=== PATIENT | female | born 1970 | race Caucasian/White ===

== ENCOUNTER 2018-12-25 22:22 | Emergency (ER) | payer BC ==
[~2018-12-25] VITALS: Ht 170.2 cm; Wt 113.4 kg
[2018-12-25] MEDS ORDERED: SYNTHROID175 MCG (22:27)
== END 2018-12-26 00:26 ==
LOC: ER 22:22
DX: R00.2 Palpitations (principal); F41.8 Other specified anxiety disorders